=== PATIENT | female | born 1980 | race Caucasian/White ===

== ENCOUNTER → 2018-06-07 | Outpatient (CLI) | payer OTHER ==
--- NOTE | 2018-06-07 09:12 | KCIC ---
EXAM: Abdomen sonogram. HISTORY: Right upper quadrant pain. TECHNIQUE: Sonographic imaging of the abdomen was performed. COMPARISON: None. FINDINGS: The liver appears enlarged. No focal hepatic lesion is seen. The gallbladder is unremarkable. The common bile duct is normal in caliber. The right kidney, pancreas, aorta and inferior vena cava are unremarkable. IMPRESSION: 1. Hepatomegaly. The liver measurement may be accentuated due to an elongated right hepatic lobe, a normal variant. 2. Otherwise, unremarkable abdomen sonogram. Electronically signed by: Dayana Josue MD (06/07/2018 9:09 AM) [place] [id number]
== END | disposition home or self-care (01) ==
LOC: KCIC US 08:00
PROVIDERS: ATTEND Family Medicine
DX: R16.0 Hepatomegaly, not elsewhere classified (principal)
CPT/HCPCS: 76705

== ENCOUNTER → 2018-06-24 | Outpatient (CLI) | payer OTHER ==
--- NOTE | 2018-06-25 12:08 | RAD ---
Transabdominal and transvaginal ultrasound the pelvis. HISTORY: Abnormal CT scan, free fluid Transabdominal ultrasound was used to evaluate the pelvis. There is retroflexion the uterus. A uterine mass is not identified. Endometrium does not appear thickened. There is a 2.3 x 1.8 cm cyst or follicle in the right ovary. Left ovary is normal in appearance with small follicles. Endometrium measured 1 cm. Transvaginal imaging was performed for better fatty dictation. There is retroflexion of the uterus. Endometrium 1.1 cm. There is no uterine mass. Right ovary measured 4.6 x 2.5 cm. There is a simple 2.4 x 1.8 cm cyst or follicle the right ovary. There are other follicles. Left ovary measured 2.2 x 1.5 x 1.6 cm with small follicles. There is no significant free fluid in the pelvis. There is flow in both ovaries with color imaging and Doppler. IMPRESSION: 1. Cyst or follicle right ovary. 2. No free fluid noted in the pelvis. 3. Retroflexion the uterus. 4. No other abnormality noted. Electronically signed by: Jose Galvan MD (06/25/2018 12:05 PM) [facility]
== END | disposition home or self-care (01) ==
LOC: US 14:11
PROVIDERS: ATTEND Family Medicine
DX: N85.4 Malposition of uterus (principal)
CPT/HCPCS: 76830; 76856

== ENCOUNTER → 2020-04-17 | Outpatient (CLI) | payer OTHER ==
--- NOTE | 2020-04-17 17:19 | RAD ---
Examination: 1. Bilateral digital diagnostic mammogram. 2. Limited left breast ultrasound. INDICATION: 39-year-old woman presents with left breast palpable area of concern on self exam. COMPARISON: None available. This will serve as a new baseline. TECHNIQUE: CC and MLO views of both breasts were obtained with 2-D and 3-D technique and reviewed wit h computer-aided detection. The patient's reported area of palpable concern was marked with the skin surface with a triangular marker. Targeted ultrasound of the left breast in the area of palpable conc wilder of mammographic interest was also performed. FINDINGS: Heterogeneous and dense breast parenchyma. Right mammogram is negative. Left mammogram showed a questioned asymmetry in the lower outer left breast at the 4:00 position appr oximately 4 cm from the nipple. There was no mammographic correlate to the area of patient reported p alpable concern in the subareolar 2:00 position. Targeted ultrasound of the left breast revealed no definite sonographic correlate to the area of mamm ographic interest or of clinical concern. Sonographic survey of the left axilla revealed no adenopath y. IMPRESSION: Negative bilateral mammogram and targeted left breast ultrasound. BI-RADS Category 1 Negative Recommend clinical management which should include biopsy if there are any clinically suspicious find ings. Breast MRI could also be considered in further imaging evaluation if it would help with clinica l decision making. In the absence of any clinically suspicious findings, age-appropriate routine [place] mammographic screening is recommended, starting at age 40 in average risk women. Electronically signed by: Anamaria Muro MD (04/17/2020 5:17 PM) [id number]
== END ==
LOC: MAMMO 13:09
PROVIDERS: ATTEND Family Medicine
DX: R92.8 Other abnormal and inconclusive findings on diagnostic imaging of breast (principal); N63.23 Unspecified lump in the left breast, lower outer quadrant
CPT/HCPCS: 76641; 77066; G0279; 77062